=== PATIENT | male | born 1955 | race African-American/Black ===

== ENCOUNTER 2017-11-24 14:02 | Emergency (ER) | payer MEDICAID, SELFPAY ==
[~2017-11-24] VITALS: Ht 172.7 cm; Wt 84.0 kg
[2017-11-24] MEDS ORDERED: TETANUS, DIPHTHERIA, PERTUSSIS VAC/PF 0.5ML (>7YR OLD) IM ONE (15:30)
[2017-11-24] MEDS ORDERED: LIDOCAINE HCL 1% 20ML VIAL (Pyxis) INJ MC ONE (15:30)
[2017-11-24] MEDS ORDERED: BACITRACIN ZINC OINT UDPKT TOP ONE (15:30)
[2017-11-24] MEDS ORDERED: LIDOCAINE HCL/PF 1% 10 MG/ML 5ML VIAL IJ NR ×2 (16:35→18:03)
[2017-11-24] MEDS ORDERED: LIDOCAINE HCL 1% 20ML VIAL (Pyxis) INJ INFIL ONE (18:00)
[2017-11-24 19:30] VITALS: BP 135/79
== END 2017-11-24 19:40 | disposition home or self-care (01) ==
LOC: ER 14:50
DX: S61.212A Laceration without foreign body of right middle finger without damage to nail, initial encounter (principal); W22.8XXA Striking against or struck by other objects, initial encounter; Y93.89 Activity, other specified; Y92.018 Other place in single-family (private) house as the place of occurrence of the external cause
CPT/HCPCS: 12002; 73130; 90471; 90715; 99284; J3490

== ENCOUNTER 2018-08-17 15:04 | Inpatient (IN) | payer MEDICAID ==
[~2018-08-17] VITALS: Ht 180.3 cm; Wt 88.2 kg
[2018-08-17] MEDS ORDERED: ONDANSETRON HCL 4MG/2ML INJ IV STA (15:43)
[2018-08-17] MEDS ORDERED: MORPHINE SULFATE 4 MG/ML CPJ (NOT FOR IM USE) IV STA (15:43)
[2018-08-17] MEDS ORDERED: DIPHENHYDRAMINE 50MG/ML VIAL IV ONE (15:45)
[2018-08-17] MEDS ORDERED: PROCHLORPERAZINE 10MG/2ML VIAL IV ONE (15:45)
[2018-08-17] MEDS ORDERED: MORPHINE SULFATE 10 MG/ML CPJ IV STA (16:36)
[2018-08-17 16:55] LABS: HEMATOCRIT. 42.4 % (42.0-52.0); HEMOGLOBIN. 14.1 g/dL (14.0-18.0); MEAN CORPUSCULAR HEMOGLOBIN 26.8 pg (28.0-32.0); MEAN CORPUSCULAR VOLUME 80.5 fL (80.0-94.0); PLATELET 125 x1000/uL (130-400); RED BLOOD CELL COUNT 5.27 mill/uL (4.7-6.1)
[2018-08-17 16:59] LABS: CHLORIDE 100 mEq/L (98-107)
[2018-08-17 17:01] LABS: PROTHROMBIN TIME 10.1 sec (9.1-11.1)
[2018-08-17] MEDS ORDERED: SODIUM CHLORIDE 0.9% 1,000 ML IV ONE (17:17)
[2018-08-17 17:34] LABS: PLATELET ESTIMATE NORMAL
[2018-08-17 18:07] LABS: CLARITY URINE CLEAR (CLEAR); COLOR URINE DARK YELLOW (YELLOW); KETONES URINE 1+ (NEGATIVE); LEUKOCYTE ESTERASE URINE TRACE (NEGATIVE); NITRITE URINE NEGATIVE (NEGATIVE); OCCULT BLOOD URINE 2+ (NEGATIVE); PROTEIN URINE 2+ (NEGATIVE); SPECIFIC GRAVITY URINE 1.032 (1.005-1.030)
[2018-08-17] MEDS ORDERED: IOHEXOL-350 100 ML BOTTLE ONE (18:51)
[2018-08-17] MEDS ORDERED: ASPIRIN 325MG TABLET PO ONE (19:15)
[2018-08-17] MEDS ORDERED: ENOXAPARIN 80MG/0.8ML SYR SUBCUT ONE (19:45)
[2018-08-17] MEDS ORDERED: CLONIDINE 0.1MG TABLET PO PRN (20:45)
[2018-08-17] MEDS ORDERED: ONDANSETRON HCL 4MG/2ML INJ IV PRN (20:45)
[2018-08-17] MEDS ORDERED: IPRATROPIUM/ALBUTEROL 0.5-3(2.5)MG/3ML NEB INH PRN (20:45)
[2018-08-17] MEDS ORDERED: DOCUSATE SODIUM 100MG CAPSULE PO PRN (20:45)
[2018-08-17] MEDS ORDERED: GUAIFENESIN 200MG/10ML SUGAR FREE UDC PO PRN (20:45)
[2018-08-17] MEDS ORDERED: HYDROCODONE/ACETAMINOPHEN 5/325MG TABLET PO PRN (20:45)
[2018-08-17] MEDS ORDERED: ACETAMINOPHEN 325MG TABLET PO PRN (20:45)
[2018-08-17 21:45] VITALS: BP 108/63
[2018-08-17 21:55] VITALS: BP 93/54
[2018-08-17 22:06] LABS: *AMPHETAMINES SCREEN URINE NEGATIVE (NEGATIVE); *BARBITURATES SCREEN URINE NEGATIVE (NEGATIVE); *BENZODIAZEPINES SCREEN URINE NEGATIVE (NEGATIVE); *COCAINE SCREEN URINE NEGATIVE (NEGATIVE); METHADONE URINE SCREEN NEGATIVE (NEGATIVE); OPIATES URINE SCREEN NEGATIVE (NEGATIVE)
[2018-08-17 22:07] LABS: CANNABINOID URINE SCREEN NEGATIVE (NEGATIVE); PHENCYCLIDINE URINE SCREEN NEGATIVE (NEGATIVE)
[2018-08-18] VITALS: BP 91/42
[2018-08-18 01:23] LABS: CREATINE KINASE MB FRACTION 1.1 ng/mL (0.5-3.6)
[2018-08-18 02:00] VITALS: BP 91/56
[2018-08-18 04:00] VITALS: BP 102/57
[2018-08-18 06:00] VITALS: BP 106/70
[2018-08-18] MEDS ORDERED: PNEUMOCOCCAL 23-VAL P-SAC VAC 0.5 ML IM ONE (06:00)
[2018-08-18] MEDS ORDERED: INFLUENZA VIRUS VACCINE(AFLURIA) 0.5ML SYR IM ONE (06:00)
[2018-08-18] MEDS ORDERED: LISINOPRIL 10MG TABLET PO SCH (09:00)
[2018-08-18] MEDS ORDERED: ASPIRIN 81MG EC TABLET PO SCH (09:00)
[2018-08-18] MEDS ORDERED: METOPROLOL TARTRATE 25MG TABLET PO SCH (09:00)
== END 2018-08-18 06:20 | disposition left against medical advice (07) | DRG 54 ==
LOC: ER 15:04 → 8WST 19:36 → EDBEDREQ 19:42 → EDBEDREQTM 19:42 → ENRESERV 20:02 → 3WST 21:59
PROVIDERS: ADMIT Internal Medicine; ATTEND Internal Medicine
DX: R51 Headache (principal); I10 Essential (primary) hypertension; Z53.21 Procedure and treatment not carried out due to patient leaving prior to being seen by health care provider; R07.9 Chest pain, unspecified; R10.9 Unspecified abdominal pain
CPT/HCPCS: 36415; 71045; 71275; 74174; 80305; 82550; 82553; 84484; 90686; 90732; 93005; 96361; 96374; 96375; 99291; J0780; J1200; J1650; J2405; Q9967; A4315